=== PATIENT | female | born 2000 | race Caucasian/White ===

== ENCOUNTER 2022-02-27 12:24 | Emergency (ER) | payer OTHER ==
[2022-02-27 12:32] VITALS: BP 135/64; PULSE 92; RESP 18; TEMP 97.9; BMI 27.2
[2022-02-27] MEDS ORDERED: ACETAMINOPHEN 500 MG TABLET (FP) PO ONE (13:12)
[2022-02-27] MEDS ORDERED: ACETAMINOPHEN 500 MG TABLET (FP) ONE (13:40)
== END 2022-02-27 13:52 | disposition home or self-care (01) ==
LOC: JERFT 12:24
DX: M25.531 Pain in right wrist (principal)
CPT/HCPCS: 73110-TC-RT-FY; 73130-TC-RT-FY; 99284-25

== ENCOUNTER 2022-03-02 12:15 | Emergency (ER) | payer OTHER ==
[2022-03-02 12:29] VITALS: BP 132/86; PULSE 95; RESP 16; TEMP 98.3; BMI 26.9
== END 2022-03-02 13:56 | disposition home or self-care (01) ==
LOC: JER 12:15 → JERFT 12:15
DX: M79.641 Pain in right hand (principal)
CPT/HCPCS: 73130-TC-RT-FY; 99283-25

== ENCOUNTER 2022-04-20 12:19 | Inpatient (IN) | payer OTHER ==
[2022-04-20 12:41] VITALS: BMI 29.0
[2022-04-20 14:19] LABS: BASO % 0.5 % (0-2.0); EOS % 1.9 % (0-4.5); HEMATOCRIT 32.7 % (32.4-45.2); HEMOGLOBIN 10.6 GM/dL (10.7-15.3); MCH 24.4 pg (25.7-33.7); MCHC 32.4 g/dl (32.0-36.0); MEAN CELL VOLUME 75.4 fl (80-96); MEAN PLT VOLUME 8.1 fl (7.5-11.1); MONO % 12.6 % (3.8-10.2); PLATELET COUNT 514 10^3/uL (134-434); RBC 4.34 M/mm3 (3.60-5.2); RDW 17.8 % (11.6-15.6); WHITE BLOOD COUNT 6.4 K/mm3 (4.0-10.0)
[2022-04-20 14:27] LABS: INR 1.1 (0.83-1.09); PROTHROMBIN TIME (PATIENT) 12.7 SEC (9.7-13.0)
[2022-04-20 14:32] LABS: ALBUMIN 3.5 g/dl (3.4-5.0); CALCIUM 9.3 mg/dL (8.5-10.1)
[2022-04-20 14:34] LABS: BLOOD UREA NITROGEN 13.4 mg/dL (7-18)
[2022-04-20 14:36] LABS: CREATININE 0.4 mg/dL (0.55-1.3)
[2022-04-20 14:37] LABS: BILIRUBIN,TOTAL 0.2 mg/dL (0.2-1); TOT PROT 7.2 g/dl (6.4-8.2)
[2022-04-20] MEDS ORDERED: SODIUM CHLORIDE 0.9% 500 ML INFUS.BAG IV ONE (17:20)
[2022-04-20] MEDS ORDERED: ACETAMINOPHEN 1000 MG/100 ML BAG IVPB ONE (17:20)
[2022-04-20] MEDS ORDERED: ACETAMINOPHEN INJECTION 100 ML IVPB ONE (18:17)
[2022-04-21] MEDS: ACETAMINOPHEN 325 MG TABLET (FP) PO PRN (08:56)
[2022-04-21] MEDS: ENOXAPARIN NA (PORCINE) 40 MG/0.4 ML DISP.SYRIN SQ SCH (09:25)
[2022-04-21 09:45] LABS: HEMATOCRIT 31.6 % (32.4-45.2); MCH 24.1 pg (25.7-33.7); MCHC 31.6 g/dl (32.0-36.0); MEAN CELL VOLUME 76.2 fl (80-96); MEAN PLT VOLUME 8.9 fl (7.5-11.1); PLATELET COUNT 486 10^3/uL (134-434); RBC 4.15 M/mm3 (3.60-5.2); RDW 17.8 % (11.6-15.6); WHITE BLOOD COUNT 5.1 K/mm3 (4.0-10.0)
[2022-04-21] MEDS ORDERED: LORATADINE 10 MG TABLET PO SCH (10:00)
[2022-04-21] MEDS ORDERED: amLODIPine BESYLATE 5 MG TABLET (FP) PO SCH (10:00)
[2022-04-21 10:13] LABS: CALCIUM 9.5 mg/dL (8.5-10.1)
[2022-04-21 10:14] LABS: ALBUMIN 3.2 g/dl (3.4-5.0); BLOOD UREA NITROGEN 7.8 mg/dL (7-18)
[2022-04-21 10:17] LABS: BILIRUBIN,TOTAL 0.3 mg/dL (0.2-1); CREATININE 0.4 mg/dL (0.55-1.3); PHOSPHOROUS 5.2 mg/dL (2.5-4.9); TOT PROT 6.6 g/dl (6.4-8.2)
[2022-04-21] MEDS ORDERED: ONDANSETRON 4 MG/2 ML VIAL IVPB PRN (14:56)
[2022-04-21] MEDS ORDERED: propRANOLol HCL 10 MG TABLET PO ONE (14:57)
[2022-04-21 19:54] LABS: PH,URINE 8.5 (5.0-8.0); URINE APPEARANCE TURBID; URINE BILIRUBIN NEGATIVE (NEGATIVE); URINE COLOR YELLOW; URINE GLUCOSE (UA) NEGATIVE (NEGATIVE); URINE KETONE NEGATIVE (NEGATIVE); URINE LEUK ESTERASE NEGATIVE (NEGATIVE); URINE NITRITE NEGATIVE (NEGATIVE); URINE PROTEIN NEGATIVE (NEGATIVE); URINE UROBILINOGEN 0.2 mg/dL (0.2-1.0)
[2022-04-21] MEDS: propRANOLol HCL 10 MG TABLET PO SCH (21:07)
[2022-04-21] MEDS: METHIMAZOLE 5 MG TABLET PO SCH (22:14)
[2022-04-22] MEDS: propRANOLol HCL 10 MG TABLET PO SCH ×3 (06:04→21:57)
[2022-04-22] MEDS: METHIMAZOLE 5 MG TABLET PO SCH ×2 (10:08→21:57)
[2022-04-22] MEDS: ENOXAPARIN NA (PORCINE) 40 MG/0.4 ML DISP.SYRIN SQ SCH (10:08)
[2022-04-22] MEDS: ACETAMINOPHEN 325 MG TABLET (FP) PO PRN ×2 (16:17→21:57)
[2022-04-23] MEDS: propRANOLol HCL 10 MG TABLET PO SCH ×3 (06:55→18:22)
[2022-04-23] MEDS: METHIMAZOLE 5 MG TABLET PO SCH ×2 (09:52→21:53)
[2022-04-23 11:43] LABS: BASO % 2.7 % (0-2.0); EOS % 3.1 % (0-4.5); HEMATOCRIT 33.7 % (32.4-45.2); HEMOGLOBIN 10.6 GM/dL (10.7-15.3); LYMPH % 33.2 % (8-40); MCHC 31.4 g/dl (32.0-36.0); MEAN CELL VOLUME 76.3 fl (80-96); MEAN PLT VOLUME 8.8 fl (7.5-11.1); PLATELET COUNT 484 10^3/uL (134-434); RBC 4.41 M/mm3 (3.60-5.2); RDW 17.6 % (11.6-15.6); WHITE BLOOD COUNT 4.3 K/mm3 (4.0-10.0)
[2022-04-23 11:46] LABS: CALCIUM 9.4 mg/dL (8.5-10.1)
[2022-04-23 11:48] LABS: ALBUMIN 3.3 g/dl (3.4-5.0); BLOOD UREA NITROGEN 8.5 mg/dL (7-18)
[2022-04-23 11:50] LABS: CREATININE 0.4 mg/dL (0.55-1.3)
[2022-04-23 11:53] LABS: BILIRUBIN,TOTAL 0.2 mg/dL (0.2-1); TOT PROT 6.9 g/dl (6.4-8.2)
[2022-04-23] MEDS ORDERED: propRANOLol HCL 10 MG TABLET PO ONE (11:57)
[2022-04-23 12:43] VITALS: RESP 20
[2022-04-23 23:13] VITALS: BP 117/67; PULSE 69; TEMP 97.6
[2022-04-24] MEDS: propRANOLol HCL 10 MG TABLET PO SCH (00:39)
[2022-04-24 13:11] LABS: THYROID STIM IMMUNOGLOBULIN 1.96 IU/L (0.00-0.55)
== END 2022-04-24 02:30 | disposition short-term general hospital (02) | DRG 694 ==
LOC: JER 12:19 → JERBED 18:10 → J6S 20:27
PROVIDERS: ADMIT Internal Medicine; ATTEND Internal Medicine
DX: D49.89 Neoplasm of unspecified behavior of other specified sites (principal); I10 Essential (primary) hypertension; E05.90 Thyrotoxicosis, unspecified without thyrotoxic crisis or storm; G43.909 Migraine, unspecified, not intractable, without status migrainosus; R00.2 Palpitations; R06.02 Shortness of breath; R07.9 Chest pain, unspecified; R11.0 Nausea; R22.2 Localized swelling, mass and lump, trunk; R25.1 Tremor, unspecified
CPT/HCPCS: 0241U-QW; 36415; 71045-TC-FY; 71260-TC; 80053; 81003; 82962; 83519; 83735; 84100; 84439; 84443; 84445; 84481; 84484; 84703; 85025; 85027; 85610; 86376; 86800; 86850; 86900; 86901; 93005; 93010; 93306-TC; 99285-25; C1887; Q9967

== ENCOUNTER 2022-06-10 19:42 | Emergency (ER) | payer OTHER ==
[2022-06-10 20:06] VITALS: BP 132/80; RESP 20; TEMP 98.5; BMI 28.5
[2022-06-10] MEDS ORDERED: ACETAMINOPHEN 500 MG TABLET (FP) PO ONE (20:43)
[2022-06-10] MEDS ORDERED: ACETAMINOPHEN 500 MG TABLET (FP) ONE (20:50)
[2022-06-10 22:00] VITALS: PULSE 99
== END 2022-06-10 22:00 | disposition home or self-care (01) ==
LOC: JERFT 19:42
DX: S90.02XA Contusion of left ankle, initial encounter (principal); V00.031A Pedestrian on foot injured in collision with rider of standing electric scooter, initial encounter
CPT/HCPCS: 73610-TC-LT-FY; 73630-TC-LT; 99283-25

== ENCOUNTER 2022-06-14 12:27 | Emergency (ER) | payer OTHER ==
[2022-06-14 13:14] VITALS: BP 128/75; PULSE 101; RESP 18; TEMP 98.6; BMI 30.2
[2022-06-14] MEDS ORDERED: ACETAMINOPHEN 500 MG TABLET (FP) PO ONE (15:52)
[2022-06-14] MEDS ORDERED: ACETAMINOPHEN 325 MG TABLET (FP) ONE (16:08)
== END 2022-06-14 16:15 | disposition home or self-care (01) ==
LOC: JERFT 12:27 → JER 12:27 → JERFT 16:15
DX: M79.672 Pain in left foot (principal)
CPT/HCPCS: 99283-25

== ENCOUNTER 2023-12-12 22:49 | Emergency (ER) | payer OTHER ==
[2023-12-12 22:53] VITALS: BP 136/85; PULSE 100; RESP 20; TEMP 97.7; BMI 27.4
[2023-12-12] MEDS ORDERED: LIDOCAINE 5% TOPICAL PATCH ONE (23:51)
[2023-12-12 23:57] LABS: PH,URINE 7.5 (5.0-8.0); URINE APPEARANCE CLEAR; URINE BILIRUBIN NEGATIVE (NEGATIVE); URINE COLOR YELLOW; URINE GLUCOSE (UA) NEGATIVE (NEGATIVE); URINE KETONE NEGATIVE (NEGATIVE); URINE LEUK ESTERASE NEGATIVE (NEGATIVE); URINE NITRITE NEGATIVE (NEGATIVE); URINE PROTEIN NEGATIVE (NEGATIVE); URINE UROBILINOGEN 0.2 mg/dL (0.2-1.0)
[2023-12-13 00:05] LABS: HCG,QUALITATIVE URINE Negative
[2023-12-13] MEDS: LIDOCAINE 5% TOPICAL PATCH TP ONE (00:08)
[2023-12-13] MEDS: morphine CARPU-JECT 2 MG/1 ML DISP.SYRIN IVPUSH ONE (00:33)
[2023-12-13] MEDS: LIDOCAINE PATCH REMOVAL MC SCH (00:33)
[2023-12-13] MEDS: SODIUM CHLORIDE 1,000 ML IV STA (00:33)
[2023-12-13 00:39] LABS: HEMATOCRIT 31.9 % (32.4-45.2); HEMOGLOBIN 10.1 GM/dL (10.7-15.3); LYMPH % 26.7 % (8-40); MCH 23.4 pg (25.7-33.7); MCHC 31.8 g/dl (32.0-36.0); MEAN CELL VOLUME 73.5 fl (80-96); MEAN PLT VOLUME 7.8 fl (7.5-11.1); MONO % 9.5 % (3.8-10.2); NEUT % 60.8 % (42.8-82.8); PLATELET COUNT 542 10^3/uL (134-434); RBC 4.34 M/mm3 (3.60-5.2); RDW 19.9 % (11.6-15.6); WHITE BLOOD COUNT 7.8 K/mm3 (4.0-10.0)
[2023-12-13 00:45] LABS: INR 1.05 (0.83-1.09); PROTHROMBIN TIME (PATIENT) 11.9 SEC (9.7-13.0)
[2023-12-13 00:47] LABS: ACTIVATED PTT 30.3 SECONDS (25.2-36.5)
[2023-12-13 00:58] LABS: POTASSIUM 4.2 mmol/L (3.5-5.1)
[2023-12-13 01:00] LABS: ALBUMIN 3.9 g/dl (3.4-5.0); CALCIUM 9.4 mg/dL (8.5-10.1)
[2023-12-13 01:01] LABS: BLOOD UREA NITROGEN 8.6 mg/dL (7-18)
[2023-12-13 01:04] LABS: CREATININE 0.7 mg/dL (0.55-1.3)
[2023-12-13 01:05] LABS: BILIRUBIN,TOTAL 0.1 mg/dL (0.2-1); TOT PROT 7.8 g/dl (6.4-8.2)
== END 2023-12-13 04:33 | disposition home or self-care (01) ==
LOC: JER 22:49
PROC: 3E033NZ Introduction of Analgesics, Hypnotics, Sedatives into Peripheral Vein, Percutaneous Approach (ICD-10-PCS; principal; 2023-12-13)
PROC: 3E0337Z Introduction of Electrolytic and Water Balance Substance into Peripheral Vein, Percutaneous Approach (ICD-10-PCS; 2023-12-13)
DX: R10.13 Epigastric pain (principal); R10.30 Lower abdominal pain, unspecified; R11.0 Nausea; R00.0 Tachycardia, unspecified; M54.50 Low back pain, unspecified; N13.2 Hydronephrosis with renal and ureteral calculous obstruction
CPT/HCPCS: 36415; 74176-TC; 76830-TC; 80053; 81003; 83690; 84703; 85025; 85610; 85730; 87086; 99284-25

== ENCOUNTER 2024-12-26 07:38 | Emergency (ER) | payer OTHER ==
[2024-12-26 07:43] VITALS: BP 128/58; PULSE 87; RESP 18; TEMP 98.8; BMI 30.2
[2024-12-26 08:48] LABS: ABSOLUTE IMMATURE GRANULOCYTES 0.01 x10^3/uL (0.0-0.031); BASOPHILS # 0.02 x10^3/uL (0.01-0.08); EOSINOPHIL % 2.6 % (0.7-5.8); EOSINOPHILS # 0.13 x10^3/uL (0.04-0.36); HEMOGLOBIN 12.2 g/dL (11.2-15.7); MCHC 31.3 g/dl (32.2-35.5); MEAN CELL VOLUME 83.7 fl (79.4-94.8); MEAN PLT VOLUME 10.5 fl (9.4-12.3); MONOCYTE # 0.61 x10^3/uL (0.24-0.86); MONOCYTE % 12.4 % (4.7-12.5); PLATELET COUNT 451 x10^3/uL (182-369); RDW 14.6 % (12.1-16.5)
[2024-12-26 08:56] LABS: PROTHROMBIN TIME (PATIENT) 10.9 SEC (9.7-13.0)
[2024-12-26 08:59] LABS: ACTIVATED PTT 22.7 SECONDS (25.2-36.5)
[2024-12-26 09:26] LABS: POTASSIUM 4.5 mmol/L (3.5-5.1)
[2024-12-26 09:27] LABS: CALCIUM 9.9 mg/dL (8.5-10.1)
[2024-12-26 09:28] LABS: ALBUMIN 3.6 g/dl (3.4-5.0); BLOOD UREA NITROGEN 12.2 mg/dL (7-18)
[2024-12-26 09:31] LABS: CREATININE 0.4 mg/dL (0.55-1.3)
[2024-12-26 09:33] LABS: BILIRUBIN,TOTAL 0.3 mg/dL (0.2-1)
[2024-12-26 12:13] LABS: HCV DIAGNOSTIC IN-HOUSE W/RFLX NON-REACTIVE (NONREACTIVE)
[2024-12-26 12:16] LABS: HIV INTERPRETATION NEGATIVE (NEGATIVE)
== END 2024-12-26 11:26 | disposition home or self-care (01) ==
LOC: JER 07:38
DX: O99.891 Other specified diseases and conditions complicating pregnancy (principal); R55 Syncope and collapse; Z3A.01 Less than 8 weeks gestation of pregnancy
CPT/HCPCS: 36415; 76817-TC; 80053; 84702; 85025; 85610; 85730; 86803; 86850; 86900; 86901; 87389; 93005; 93010; 99285-25